=== PATIENT | female | born 1960 | race Caucasian/White ===

== ENCOUNTER 2023-03-11 08:28 | Day surgery (SDC) | payer BC, MEDICARE ==
[~2023-03-11] VITALS: Ht 162.6 cm; Wt 122.5 kg
[2023-03-11 09:06] VITALS: BP 125/51; PULSE 63; RESP 16; TEMP 98.3; O2SAT 93
[2023-03-11] MEDS ORDERED: CELE100C99 PO (09:21)
[2023-03-11] MEDS ORDERED: ALBU18HF2 (09:21)
[2023-03-11] MEDS ORDERED: APIX2.5T PO (09:21)
[2023-03-11] MEDS ORDERED: FLUO40CA (09:21)
[2023-03-11] MEDS ORDERED: METH-603 PO (09:21)
[2023-03-11] MEDS ORDERED: EZET10TA6 PO (09:22)
[2023-03-11] MEDS ORDERED: OXYC15TA PO (09:22)
[2023-03-11] MEDS ORDERED: QUET25TA PO (09:23)
[2023-03-11] MEDS ORDERED: iohexol 300mg/ml 100ml inj. ONE (10:49)
[2023-03-11] MEDS ORDERED: iohexol 300 MG/1 ML 50ml polymer ONE (10:54)
[2023-03-11] MEDS ORDERED: midazolam 1 mg/ML 2ml injection ONE (11:06)
[2023-03-11] MEDS ORDERED: fentaNYL/PF 50MCG/1 ML 2ML syringe ONE (11:06)
[2023-03-11 11:26] VITALS: BP 124/48; PULSE 65; RESP 12; O2SAT 97
== END 2023-03-11 11:45 | disposition home or self-care (01) ==
LOC: SSTAY O 08:28
PROVIDERS: ATTEND Radiology Vascular & Interventional Radiology
DX: T82.49XA Other complication of vascular dialysis catheter, initial encounter (principal); D80.1 Nonfamilial hypogammaglobulinemia; Z79.01 Long term (current) use of anticoagulants; Z79.891 Long term (current) use of opiate analgesic; Z88.8 Allergy status to other drugs, medicaments and biological substances; Y73.2 Prosthetic and other implants, materials and accessory gastroenterology and urology devices associated with adverse incidents; Y92.89 Other specified places as the place of occurrence of the external cause
CPT/HCPCS: 36561; 77001; J7030; Q9967; A4620; A6449; J2250; J3010

== ENCOUNTER 2023-05-03 08:32 | Outpatient (CLI) | payer BC, MEDICARE ==
[2023-05-03] VITALS (9 sets, daily range): BP systolic 96–120; BP diastolic 31–48; PULSE 56–82; RESP 14–28; O2SAT 97–99
[~2023-05-03] VITALS: Ht 162.6 cm; Wt 118.0 kg
[~2023-05-03 08:32] MED LIST: ALBU18HF2; APIX2.5T PO; CELE100C99 PO; EZET10TA6 PO; FLUO40CA; METH-603 PO; OXYC15TA PO; QUET25TA PO
[2023-05-03] MEDS ORDERED: regadenoson 0.4mg/5ml syringe IV ONE (10:05)
[2023-05-03] MEDS ORDERED: nitroGLYCERIN 0.4mg SUBLingual tab SL PRN (10:05)
[2023-05-03] MEDS ORDERED: aminophylline 250mg/10ml inj. IV PRN (10:05)
[2023-05-04] MEDS ORDERED: PANT40TA54 PO (11:11)
[2023-05-04] MEDS ORDERED: PARO20TA6 PO (11:11)
[2023-05-04] MEDS ORDERED: SIMV10TA98 PO (11:11)
[2023-05-04] MEDS ORDERED: ARIP10TA14 PO (11:11)
[2023-05-04] MEDS ORDERED: HYDROCORTISONE PO ×2 (11:11)
[2023-05-04] MEDS ORDERED: SENN-263 PO (11:11)
== END 2023-05-03 23:59 | disposition home or self-care (01) ==
LOC: RAD 08:32
PROVIDERS: ATTEND Internal Medicine Cardiovascular Disease
DX: R94.31 Abnormal electrocardiogram [ECG] [EKG] (principal)
CPT/HCPCS: 78452; 93017; A9500; J2785

== ENCOUNTER 2023-05-06 09:21 | Day surgery (SDC) | payer BC, MEDICARE ==
[2023-05-04 11:48] LABS: BASOPHILS # (AUTO) 0.1 X10'3 (0-0.2); BASOPHILS % (AUTO) 0.6 % (0-1); EOSINOPHILS % (AUTO) 0.4 % (0-6); LYMPHOCYTES # (AUTO) 0.7 X10'3 (1.1-4.8); LYMPHOCYTES % (AUTO) 7.1 % (21-51); MEAN CORPUSCULAR HEMOGLOBIN 27.8 PG (27.0-31.0); MEAN CORPUSCULAR HGB CONC 29.4 g/dL (33.0-36.5); MEAN CORPUSCULAR VOLUME 94.6 FL (78-98); MEAN PLATELET VOLUME 8.5 FL (7.4-10.4); MONOCYTES # (AUTO) 0.6 X10'3 (0-0.9); MONOCYTES % (AUTO) 6.1 % (2-12); NEUTROPHILS # (AUTO) 7.9 X10'3 (1.8-7.7); NEUTROPHILS % (AUTO) 85.8 % (42-75); PRE OP HEMATOCRIT 23.9 % (35.0-45.0); PRE OP PLATELET COUNT 245 X10'3 (140-440); PRE OP WHITE BLOOD COUNT 9.2 10'3 (4.8-10.8); RED BLOOD COUNT 2.53 X10'6 (4.20-5.60); RED CELL DISTRIBUTION WIDTH 22.4 % (11.5-14.5)
[2023-05-04 11:57] LABS: ALBUMIN 2.8 G/DL (3.4-5.0); ALBUMIN/GLOBULIN RATIO 0.9 (1.1-1.5); ALKALINE PHOSPHATASE 57 IU/L (46-116); BLOOD UREA NITROGEN 22 MG/DL (7-18); BUN/CREATININE RATIO 21.6 (10.0-20.0); CALCIUM 8.7 MG/DL (8.5-10.1); CHLORIDE 107 MMOL/L (99-107); CREATININE 1.02 MG/DL (0.40-0.90); PRE OP ALT 23 U/L (30-65); PRE OP ANION GAP 8 (8-16); PRE OP AST 16 U/L (10-37); PRE OP BILIRUB, TOTAL 0.3 MG/DL (0.0-1.0); PRE OP GLUCOSE 85 MG/DL (70-104); PRE OP POTASSIUM 3.4 MMOL/L (3.4-5.1); PRE OP SODIUM 142 MMOL/L (135-145); TOTAL CARBON DIOXIDE 26.7 MMOL/L (24-32); TOTAL PROTEIN 5.8 G/DL (6.4-8.2); eGFR 55 ML/MIN
[2023-05-04 12:13] LABS: ANISOCYTOSIS 3+; NUCLEATED RED BLOOD CELLS 2 /100WBC (0-0); PLATELET ESTIMATE NORMAL; TOTAL CELLS COUNTED 100
[2023-05-04 12:14] LABS: ELLIPTOCYTES FEW; POLYCHROMASIA FEW; TEAR DROP CELLS FEW
[~2023-05-06] VITALS: Ht 162.6 cm; Wt 120.2 kg
[2023-05-06] VITALS (12 sets, daily range): BP systolic 122–140; BP diastolic 57–75; PULSE 54–66; RESP 14–21; TEMP 97.8; O2SAT 99–100
[~2023-05-06 09:21] MED LIST changes: -ALBU18HF2; +ALBU18HF2 PO; +ARIP10TA14 PO; +CELE-148 PO; -CELE100C99 PO; -FLUO40CA; +HYDROCORTISONE PO; +PANT40TA54 PO; +PARO20TA6 PO; +SENN-263 PO; +SIMV10TA98 PO; +albuterol 2.5 MG/3 ML nebule NEB ONE; +cefazolin 2gm/D5W 100mL 100 ML IV ONE; +famotidine 20mg tablet PO ONE; +methylPREDNISolone sod succ 125mg/2ml vial IV ONE; +ringers solution, lacted 1,000 ML IV SCH
[2023-05-06 11:39] LABS: ISTAT CREATININE 0.8 mg/dL (0.6-1.1); ISTAT HGB 9.9 g/dl (12.0-16.0); ISTAT IONIZED CALCIUM 1.24 mmol/L (1.03-1.32); ISTAT K 3.6 mmol/L (3.5-5.1); POC BUN/CREATININE RATIO 21.3 (6.6-38.0)
[2023-05-06 13:06] LABS: BILIRUBIN,URINE NEGATIVE (Neg); CLARITY,URINE CLEAR (Clear); COLOR,URINE YELLOW (Yellow); GLUCOSE, URINE NEGATIVE (Neg); KETONES,URINE NEGATIVE (Neg); LEUKOCYTE ESTERASE ,URINE NEGATIVE (Neg); NITRITES, URINE NEGATIVE (Neg); OCCULT BLOOD,URINE NEGATIVE (Neg); PROTEIN,URINE NEGATIVE (Neg)
[2023-05-06 13:11] LABS: UA COLLECTION TYPE CLN CATCH MIDSTREAM
[2023-05-06] MEDS ORDERED: ringers solution, lacted 1,000 ML IV SCH (14:55)
[2023-05-06] MEDS ORDERED: morphine 4 MG/ML inj SYRINge IV PRN (14:55)
[2023-05-06] MEDS ORDERED: morphine 2 MG/ML inj. syringe IV PRN (14:55)
[2023-05-06] MEDS ORDERED: meperidine/PF 25mg/ml syringe IV PRN ×3 (14:55)
[2023-05-06] MEDS ORDERED: proCHLORperazine 10 MG/2 ml inj IV PRN (14:55)
[2023-05-06] MEDS ORDERED: ondansetron/PF 4mg/2ml inj IV PRN (14:55)
[2023-05-06] MEDS ORDERED: bacitracin 15gm ointment TP ONE (14:59)
[2023-05-06] MEDS ORDERED: BUPIVAcaine 2.5mg/ml inj 50ml vial (contains preservative) ONE (14:59)
[2023-05-06] MEDS ORDERED: fentaNYL/PF 50MCG/1 ML 2ML syringe ONE ×2 (15:00→15:38)
[2023-05-06] MEDS ORDERED: midazolam 1 mg/ML 2ml injection ONE (15:01)
[2023-05-06] MEDS ORDERED: ondansetron/PF 4mg/2ml inj ONE (15:10)
[2023-05-06] MEDS ORDERED: sevoflurane 250ml liquid IH ONE (15:10)
[2023-05-06] MEDS ORDERED: ketamine 50mg/5ml syringe ONE (15:32)
[2023-05-06] MEDS ORDERED: BUPIVAcaine 2.5mg/ml inj 50ml vial (contains preservative) SQ ONE (15:45)
[2023-05-06] MEDS ORDERED: propofol inj 20 ML IV ONE (15:48)
[2023-05-06] MEDS ORDERED: LIDOcaine 2% (20mg/ml) 5ml vial ONE (15:48)
[2023-05-06] MEDS ORDERED: ceFAZolin 1000mg inj ONE (15:48)
[2023-05-06] MEDS ORDERED: glycopyrrolate 0.2mg/ml inj ONE (15:48)
[2023-05-06] MEDS ORDERED: HYDROcodone/acetaminophen 10/325mg tab PO ONE (17:05)
[2023-05-31] MEDS ORDERED: HYDR-4318 PO (11:24)
[2023-06-02] MEDS ORDERED: SIMV-342 PO (11:23)
[2023-06-02] MEDS ORDERED: QUET100T34 PO (11:23)
[2023-06-02] MEDS ORDERED: HYDR20TA24 PO (11:23)
== END 2023-05-06 17:16 | disposition home or self-care (01) ==
LOC: PAS 09:21
PROVIDERS: ATTEND Podiatrist Foot & Ankle Surgery
DX: M19.171 Post-traumatic osteoarthritis, right ankle and foot (principal); M86.8X7 Other osteomyelitis, ankle and foot; J45.909 Unspecified asthma, uncomplicated; I25.10 Atherosclerotic heart disease of native coronary artery without angina pectoris; I50.9 Heart failure, unspecified; D64.9 Anemia, unspecified; F32.A Depression, unspecified; E66.9 Obesity, unspecified; Z68.42 Body mass index [BMI] 45.0-49.9, adult; E27.40 Unspecified adrenocortical insufficiency; Z87.891 Personal history of nicotine dependence; Z86.14 Personal history of Methicillin resistant Staphylococcus aureus infection; Z79.01 Long term (current) use of anticoagulants; Z79.899 Other long term (current) drug therapy; Z88.8 Allergy status to other drugs, medicaments and biological substances; Z72.89 Other problems related to lifestyle; Z98.890 Other specified postprocedural states
CPT/HCPCS: 20220; 20225; 36415; 73600; 77002; 80047; 80053; 81003; 82948; 85025; 87070; 87075; 87077; 87102; 87186; 94640; 94760; A6222; J0690; J2175; J2250; J2405; J2704; J2930; J3010; J3490; J7030; J7120; Z7506; Z7512; 76000; 85007; A4618; A6449; A7000

== ENCOUNTER 2023-06-10 11:16 | Inpatient (IN) | payer BC, MEDICARE ==
[2023-05-31 11:37] LABS: BASOPHILS % (AUTO) 0.4 % (0-1); EOSINOPHILS # (AUTO) 0.1 X10'3 (0-0.9); EOSINOPHILS % (AUTO) 0.9 % (0-6); LYMPHOCYTES # (AUTO) 0.3 X10'3 (1.1-4.8); LYMPHOCYTES % (AUTO) 4.9 % (21-51); MEAN CORPUSCULAR HEMOGLOBIN 27.8 PG (27.0-31.0); MEAN CORPUSCULAR HGB CONC 29.6 g/dL (33.0-36.5); MEAN PLATELET VOLUME 8.8 FL (7.4-10.4); MONOCYTES # (AUTO) 0.3 X10'3 (0-0.9); MONOCYTES % (AUTO) 4.4 % (2-12); NEUTROPHILS # (AUTO) 5.8 X10'3 (1.8-7.7); NEUTROPHILS % (AUTO) 89.4 % (42-75); PRE OP HEMATOCRIT 25.7 % (35.0-45.0); PRE OP PLATELET COUNT 190 X10'3 (140-440); PRE OP WHITE BLOOD COUNT 6.5 10'3 (4.8-10.8); RED BLOOD COUNT 2.73 X10'6 (4.20-5.60); RED CELL DISTRIBUTION WIDTH 20.6 % (11.5-14.5)
[2023-05-31 11:39] LABS: PRE OP HEMOGLOBIN 7.6 g/dL (12.0-16.0)
[2023-05-31 11:49] LABS: ALBUMIN 2.6 G/DL (3.4-5.0); ALBUMIN/GLOBULIN RATIO 0.9 (1.1-1.5); ALKALINE PHOSPHATASE 46 IU/L (46-116); BLOOD UREA NITROGEN 21 MG/DL (7-18); BUN/CREATININE RATIO 27.3 (10.0-20.0); CALCIUM 8.5 MG/DL (8.5-10.1); CHLORIDE 105 MMOL/L (99-107); CREATININE 0.77 MG/DL (0.40-0.90); PRE OP ALT 19 U/L (30-65); PRE OP ANION GAP 7 (8-16); PRE OP AST 17 U/L (10-37); PRE OP BILIRUB, TOTAL 0.3 MG/DL (0.0-1.0); PRE OP GLUCOSE 103 MG/DL (70-104); PRE OP POTASSIUM 4.3 MMOL/L (3.4-5.1); PRE OP SODIUM 138 MMOL/L (135-145); TOTAL CARBON DIOXIDE 26.1 MMOL/L (24-32); TOTAL PROTEIN 5.5 G/DL (6.4-8.2); eGFR 76 ML/MIN
[2023-05-31 13:28] LABS: ANISOCYTOSIS 3+; PLATELET ESTIMATE NORMAL
[2023-05-31 13:29] LABS: HYPOCHROMASIA 1+; POIKILOCYTOSIS FEW; POLYCHROMASIA FEW; TEAR DROP CELLS FEW
[2023-06-10] VITALS (17 sets, daily range): BP systolic 110–160; BP diastolic 42–83; PULSE 49–91; RESP 12–20; TEMP 96.9–97.6; O2SAT 95–100
[~2023-06-10] VITALS: Ht 162.6 cm; Wt 119.6 kg
[~2023-06-10 11:16] MED LIST changes: +DOCUMENT DATE & TIME OF BETA-BLOCKER PO ONE; +HYDR-4318 PO; +HYDR20TA24 PO; -HYDROCORTISONE PO; +QUET100T34 PO; -QUET25TA PO; +SIMV-342 PO; -SIMV10TA98 PO; -albuterol 2.5 MG/3 ML nebule NEB ONE; -methylPREDNISolone sod succ 125mg/2ml vial IV ONE
[2023-06-10 13:12] LABS: ISTAT CREATININE 0.8 mg/dL (0.6-1.1); ISTAT HGB 10.9 g/dl (12.0-16.0); ISTAT IONIZED CALCIUM 1.2 mmol/L (1.03-1.32); POC BUN/CREATININE RATIO 22.5 (6.6-38.0)
[2023-06-10] MEDS ORDERED: hydrocortisone sod succ/PF 250mg/2ml inj. IV ONE (13:40)
[2023-06-10] MEDS ORDERED: HYDROCORTISONE SOD SUCC IV ONE (14:00)
[2023-06-10] MEDS ORDERED: NORMAL SALINE IV ONE (14:00)
[2023-06-10 14:19] LABS: BILIRUBIN,URINE NEGATIVE (Neg); CLARITY,URINE SLIGHTLY CLOUDY (Clear); COLOR,URINE YELLOW (Yellow); GLUCOSE, URINE NEGATIVE (Neg); KETONES,URINE NEGATIVE (Neg); LEUKOCYTE ESTERASE ,URINE NEGATIVE (Neg); NITRITES, URINE NEGATIVE (Neg); OCCULT BLOOD,URINE NEGATIVE (Neg); PH,URINE 6.5 (4.8-8.0); PROTEIN,URINE NEGATIVE (Neg); UROBILINOGEN,URINE 0.2 E.U/dL (0.2-1.0)
[2023-06-10 14:24] LABS: UA COLLECTION TYPE CLN CATCH MIDSTREAM
[2023-06-10 14:32] LABS: MUCUS STRANDS MODERATE /LPF (Neg); SQUAMOUS EPITHELIAL CELL,UR MANY /LPF (FEW)
[2023-06-10 14:33] LABS: BACTERIA,URINE FEW /HPF (Neg); HYALINE CASTS 0-3 /LPF (NEGATIVE); RBC,URINE 0-2 /HPF (0-2); WBC,URINE 0-4 /HPF (0-4)
[2023-06-10] MEDS ORDERED: ondansetron/PF 4mg/2ml inj IV PRN ×2 (14:40→18:35)
[2023-06-10] MEDS ORDERED: enalaprilat dihydrate 2.5mg/2ml vial IV PRN (14:40)
[2023-06-10] MEDS ORDERED: proCHLORperazine 10 MG/2 ml inj IV PRN (14:40)
[2023-06-10] MEDS ORDERED: morphine 2 MG/ML inj. syringe IV PRN (14:40)
[2023-06-10] MEDS ORDERED: labetalol 20mg/4ml (5mg/ml) syringe IV PRN (14:40)
[2023-06-10] MEDS ORDERED: ringers solution, lacted 1,000 ML IV SCH (14:40)
[2023-06-10] MEDS ORDERED: morphine 4 MG/ML inj SYRINge IV PRN (14:40)
[2023-06-10] MEDS ORDERED: meperidine/PF 25mg/ml syringe IV PRN ×2 (14:40)
[2023-06-10] MEDS ORDERED: fentaNYL /PF 50mcg/ml 5ml ampule ONE (15:41)
[2023-06-10] MEDS ORDERED: MIDAZolam 1 MG/ML 5ML VIAL ONE (15:41)
[2023-06-10] MEDS ORDERED: sevoflurane 250ml liquid IH ONE (15:42)
[2023-06-10] MEDS ORDERED: propofol 10mg/ml 20ml vial IV ONE (15:42)
[2023-06-10] MEDS ORDERED: ROPIVAcaine 0.5% (5mg/ml) 30ml vial ONE (15:43)
[2023-06-10] MEDS ORDERED: LIDOcaine 1%/PF 5ML 10 MG/ML VIAL ONE ×2 (15:44→15:48)
[2023-06-10] MEDS ORDERED: BUPIVAcaine/PF 7.5mg/ml (0.75%) 10ml vial ONE (15:45)
[2023-06-10] MEDS ORDERED: rocuronium 10mg/ml inj IV ONE (15:56)
[2023-06-10] MEDS ORDERED: LIDOcaine 2% jelly 6ml syringe ***for topical use only ONE (15:57)
[2023-06-10] MEDS ORDERED: Thrombin (Bovine) 5,000 unit vial TP ONE (17:40)
[2023-06-10] MEDS ORDERED: gelatin sponge, absorbable (Gelfoam 100) sponge TP ONE (17:40)
[2023-06-10] MEDS ORDERED: vancomycin 1,000mg inj ONE (17:41)
[2023-06-10] MEDS ORDERED: naloxone 0.4 mg/ml inj IV PRN (18:35)
[2023-06-10] MEDS ORDERED: HYDROcodone/acetaminophen 10/325mg tab PO PRN (18:35)
[2023-06-10] MEDS ORDERED: magnesium hydroxide 30ml (MOM) UD suspension PO PRN (18:35)
[2023-06-10] MEDS ORDERED: acetaminophen 325mg tablet PO PRN (18:35)
[2023-06-10] MEDS ORDERED: acetaminophen 1,000mg/100ml IV 100 ML IV ONE (18:50)
[2023-06-10] MEDS: meperidine/PF 25mg/ml syringe IV PRN ×3 (18:54→19:20)
[2023-06-10] MEDS: HYDROcodone/acetaminophen 10/325mg tab PO PRN (19:24)
[2023-06-10] MEDS: docusate sod 100mg capsule PO SCH (20:00)
[2023-06-10] MEDS: diphenhydrAMINE 25mg capsule PO PRN (23:14)
[2023-06-11] VITALS (8 sets, daily range): BP systolic 91–121; BP diastolic 35–53; PULSE 51–63; RESP 16–17; TEMP 97–98.1; O2SAT 96–100
[2023-06-11] MEDS: potassium CL 20mEq in D5-1/2NS 1,000 ML IV SCH ×3 (00:40→14:57)
[2023-06-11] MEDS: ceFAZolin inj. 1,000 MG in dextrose 5%-water 50ml 50 ML IV SCH ×2 (00:40→07:48)
[2023-06-11] MEDS: HYDROcodone/acetaminophen 10/325mg tab PO PRN ×4 (01:17→20:22)
[2023-06-11] MEDS: docusate sod 100mg capsule PO SCH ×2 (07:48→20:21)
[2023-06-11 09:52] LABS: ANION GAP 6 (8-16); CHLORIDE 106 MMOL/L (99-107); SODIUM 140 MMOL/L (135-145); TOTAL CARBON DIOXIDE 27.9 MMOL/L (24-32)
[2023-06-11 09:54] LABS: BASOPHILS % (AUTO) 0.1 % (0-1); EOSINOPHILS % (AUTO) 0 % (0-6); HEMATOCRIT 27.8 % (35.0-45.0); HEMOGLOBIN 8.9 g/dl (12.0-16.0); LYMPHOCYTES # (AUTO) 0.5 X10'3 (1.1-4.8); LYMPHOCYTES % (AUTO) 5.3 % (21-51); MEAN CORPUSCULAR HEMOGLOBIN 29.7 PG (27.0-31.0); MEAN CORPUSCULAR HGB CONC 31.9 g/dL (33.0-36.5); MEAN CORPUSCULAR VOLUME 93.1 FL (78-98); MEAN PLATELET VOLUME 8.8 FL (7.4-10.4); MONOCYTES # (AUTO) 0.4 X10'3 (0-0.9); MONOCYTES % (AUTO) 3.6 % (2-12); NEUTROPHILS # (AUTO) 8.9 X10'3 (1.8-7.7); PLATELET COUNT 181 X10'3 (140-440); RED BLOOD COUNT 2.98 X10'6 (4.20-5.60); RED CELL DISTRIBUTION WIDTH 20.2 % (11.5-14.5); WHITE BLOOD COUNT 9.8 X10'3 (4.5-11.0)
[2023-06-11] MEDS: vancomycin/NS 1 GM ADD-VANTAGE 250 ML IV SCH ×2 (11:55→19:15)
[2023-06-11] MEDS ORDERED: celeCOXIB 100mg capsule PO SCH (12:35)
[2023-06-11] MEDS ORDERED: sennosides 8.6mg tablet PO PRN (12:35)
[2023-06-11] MEDS: ARIPIPRAZOLE 10 MG TABLET PO SCH (13:10)
[2023-06-11] MEDS ORDERED: albuterol 2.5 MG/3 ML nebule NEB PRN (14:00)
[2023-06-11] MEDS: PARoxetine 20mg tablet PO SCH (14:32)
[2023-06-11] MEDS ORDERED: apixaban 2.5mg tablet PO SCH (20:00)
[2023-06-11] MEDS: nystatin 15 GM powder TP SCH (20:19)
[2023-06-11] MEDS: apixaban 2.5mg tablet PO SCH (20:21)
[2023-06-11] MEDS: atorvastatin 10mg tablet PO SCH (20:21)
[2023-06-11] MEDS: quetiapine 100mg tablet PO SCH (20:22)
[2023-06-11] MEDS: ezetimibe 10mg tablet PO SCH (20:22)
[2023-06-11] MEDS: hydrocortisone 10mg tablet PO SCH (20:23)
[2023-06-11] MEDS: diphenhydrAMINE 25mg capsule PO PRN (22:16)
[2023-06-12] MEDS: vancomycin/NS 1 GM ADD-VANTAGE 250 ML IV SCH (02:38)
[2023-06-12] MEDS: HYDROcodone/acetaminophen 10/325mg tab PO PRN ×4 (02:39→22:32)
[2023-06-12] MEDS: potassium CL 20mEq in D5-1/2NS 1,000 ML IV SCH ×2 (02:39→10:35)
[2023-06-12 06:00] VITALS: BP 117/33; PULSE 53; RESP 16; TEMP 97.5; O2SAT 98
[2023-06-12 10:00] VITALS: BP 106/37; PULSE 66; RESP 16; TEMP 97.8; O2SAT 97
[2023-06-12] MEDS: docusate sod 100mg capsule PO SCH ×2 (10:21→20:31)
[2023-06-12] MEDS: apixaban 2.5mg tablet PO SCH ×2 (10:21→20:31)
[2023-06-12] MEDS: PARoxetine 20mg tablet PO SCH (10:21)
[2023-06-12] MEDS: hydrocortisone 10mg tablet PO SCH ×2 (10:21→20:31)
[2023-06-12] MEDS: ARIPIPRAZOLE 10 MG TABLET PO SCH (10:21)
[2023-06-12] MEDS: nystatin 15 GM powder TP SCH ×3 (10:27→21:00)
[2023-06-12] MEDS ORDERED: VANCOMYCIN LEVEL IV ONE (10:30)
[2023-06-12 10:38] LABS: BASOPHILS % (AUTO) 0.2 % (0-1); EOSINOPHILS % (AUTO) 0.3 % (0-6); HEMATOCRIT 27.7 % (35.0-45.0); HEMOGLOBIN 8.6 g/dl (12.0-16.0); LYMPHOCYTES # (AUTO) 0.8 X10'3 (1.1-4.8); LYMPHOCYTES % (AUTO) 9.7 % (21-51); MEAN CORPUSCULAR HEMOGLOBIN 29.6 PG (27.0-31.0); MEAN CORPUSCULAR HGB CONC 30.9 g/dL (33.0-36.5); MEAN CORPUSCULAR VOLUME 95.7 FL (78-98); MEAN PLATELET VOLUME 8.7 FL (7.4-10.4); MONOCYTES # (AUTO) 0.7 X10'3 (0-0.9); MONOCYTES % (AUTO) 8.1 % (2-12); NEUTROPHILS # (AUTO) 6.9 X10'3 (1.8-7.7); NEUTROPHILS % (AUTO) 81.7 % (42-75); PLATELET COUNT 181 X10'3 (140-440); RED BLOOD COUNT 2.89 X10'6 (4.20-5.60); RED CELL DISTRIBUTION WIDTH 20.6 % (11.5-14.5); WHITE BLOOD COUNT 8.5 X10'3 (4.5-11.0)
[2023-06-12 11:02] LABS: ALANINE AMINOTRANSFERASE 24 U/L (12-78); ALBUMIN 2.4 G/DL (3.4-5.0); ALKALINE PHOSPHATASE 51 IU/L (46-116); ANION GAP 4 (8-16); ASPARTATE AMINO TRANSFERASE 14 U/L (10-37); BILIRUBIN,TOTAL 0.3 MG/DL (0.1-1.0); BLOOD UREA NITROGEN 20 MG/DL (7-18); CHLORIDE 110 MMOL/L (99-107); GLUCOSE 112 MG/DL (70-104); PHOSPHORUS 3.6 MG/DL (2.3-4.5); POTASSIUM 3.7 MMOL/L (3.5-5.1); SODIUM 142 MMOL/L (135-145); TOTAL PROTEIN 4.9 G/DL (6.4-8.2); eCRCL 50 ML/MIN; eGFR 56 ML/MIN
[2023-06-12 11:06] LABS: VANCOMYCIN,TROUGH 25.3 ug/mL (10.0-20.0)
[2023-06-12] MEDS: VANCOMYCIN 750MG IV in NS 250 ML IV SCH ×2 (13:53→20:31)
[2023-06-12 18:00] VITALS: BP 94/44; PULSE 60; RESP 15; TEMP 96.9; O2SAT 98
[2023-06-12 20:00] VITALS: RESP 15; O2SAT 100
[2023-06-12] MEDS: quetiapine 100mg tablet PO SCH (20:31)
[2023-06-12] MEDS: ezetimibe 10mg tablet PO SCH (20:31)
[2023-06-12] MEDS: atorvastatin 10mg tablet PO SCH (20:31)
[2023-06-12 22:00] VITALS: BP 107/39; PULSE 62; RESP 15; TEMP 97.2; O2SAT 100
[2023-06-13] MEDS: HYDROcodone/acetaminophen 10/325mg tab PO PRN ×3 (04:20→18:00)
[2023-06-13] MEDS: VANCOMYCIN 750MG IV in NS 250 ML IV SCH ×3 (04:20→21:35)
[2023-06-13 06:00] VITALS: BP 109/43; PULSE 59; RESP 14; TEMP 97.6; O2SAT 100
[2023-06-13] MEDS: nystatin 15 GM powder TP SCH ×3 (08:00→21:00)
[2023-06-13 10:00] VITALS: BP 117/42; PULSE 67; RESP 16; TEMP 97.5; O2SAT 98
[2023-06-13] MEDS: PARoxetine 20mg tablet PO SCH (11:10)
[2023-06-13] MEDS: docusate sod 100mg capsule PO SCH ×2 (11:11→21:36)
[2023-06-13] MEDS: hydrocortisone 10mg tablet PO SCH ×2 (11:11→21:36)
[2023-06-13] MEDS: apixaban 2.5mg tablet PO SCH ×2 (11:11→21:36)
[2023-06-13] MEDS: ARIPIPRAZOLE 10 MG TABLET PO SCH (11:11)
[2023-06-13] MEDS ORDERED: VANCOMYCIN LEVEL IV ONE ×2 (11:30→19:30)
[2023-06-13 12:11] LABS: HEMOGLOBIN 7.2 g/dl (12.0-16.0); RED CELL DISTRIBUTION WIDTH 20.5 % (11.5-14.5)
[2023-06-13 12:13] LABS: BASOPHILS % (AUTO) 0.4 % (0-1); EOSINOPHILS # (AUTO) 0.1 X10'3 (0-0.9); EOSINOPHILS % (AUTO) 1.3 % (0-6); HEMATOCRIT 22.9 % (35.0-45.0); LYMPHOCYTES # (AUTO) 0.8 X10'3 (1.1-4.8); LYMPHOCYTES % (AUTO) 8.4 % (21-51); MEAN CORPUSCULAR HEMOGLOBIN 29.9 PG (27.0-31.0); MEAN CORPUSCULAR HGB CONC 31.5 g/dL (33.0-36.5); MEAN CORPUSCULAR VOLUME 94.9 FL (78-98); MEAN PLATELET VOLUME 8.3 FL (7.4-10.4); MONOCYTES # (AUTO) 0.7 X10'3 (0-0.9); MONOCYTES % (AUTO) 7.3 % (2-12); NEUTROPHILS # (AUTO) 7.5 X10'3 (1.8-7.7); NEUTROPHILS % (AUTO) 82.6 % (42-75); PLATELET COUNT 162 X10'3 (140-440); RED BLOOD COUNT 2.41 X10'6 (4.20-5.60); WHITE BLOOD COUNT 9.1 X10'3 (4.5-11.0)
[2023-06-13 12:27] LABS: ALANINE AMINOTRANSFERASE 21 U/L (12-78); ALBUMIN 1.9 G/DL (3.4-5.0); ALBUMIN/GLOBULIN RATIO 0.8 (1.1-1.5); ALKALINE PHOSPHATASE 43 IU/L (46-116); ANION GAP 6 (8-16); ASPARTATE AMINO TRANSFERASE 14 U/L (10-37); BILIRUBIN,TOTAL 0.2 MG/DL (0.1-1.0); BLOOD UREA NITROGEN 26 MG/DL (7-18); BUN/CREATININE RATIO 29.9 (10.0-20.0); CHLORIDE 109 MMOL/L (99-107); CREATININE 0.87 MG/DL (0.40-0.90); GLUCOSE 76 MG/DL (70-104); MAGNESIUM 1.8 MG/DL (1.5-2.4); PHOSPHORUS 3.7 MG/DL (2.3-4.5); POTASSIUM 3.8 MMOL/L (3.5-5.1); SODIUM 142 MMOL/L (135-145); TOTAL PROTEIN 4.2 G/DL (6.4-8.2); VANCOMYCIN,TROUGH 23.7 ug/mL (10.0-20.0); eCRCL 58 ML/MIN; eGFR 66 ML/MIN
[2023-06-13 14:29] LABS: PLATELET ESTIMATE NORMAL; POLYCHROMASIA 1+
[2023-06-13 14:30] LABS: ANISOCYTOSIS 3+
[2023-06-13 19:00] VITALS: BP 107/35; PULSE 65; RESP 15; RESP 16; TEMP 97.3; O2SAT 99
[2023-06-13] MEDS: atorvastatin 10mg tablet PO SCH (21:36)
[2023-06-13] MEDS: ezetimibe 10mg tablet PO SCH (21:36)
[2023-06-13] MEDS: quetiapine 100mg tablet PO SCH (21:36)
[2023-06-13 22:00] VITALS: BP 97/45; PULSE 72; RESP 15; TEMP 98.4; O2SAT 99
[2023-06-13] MEDS: diphenhydrAMINE 25mg capsule PO PRN (22:11)
[2023-06-14] VITALS (12 sets, daily range): BP systolic 108–135; BP diastolic 42–60; PULSE 67–81; RESP 15–18; TEMP 97.7–99.4; O2SAT 98–100
[2023-06-14] MEDS: HYDROcodone/acetaminophen 10/325mg tab PO PRN ×3 (00:22→12:06)
[2023-06-14] MEDS: VANCOMYCIN 750MG IV in NS 250 ML IV SCH ×3 (03:59→20:40)
[2023-06-14 07:43] LABS: BASOPHILS % (AUTO) 0.3 % (0-1); EOSINOPHILS # (AUTO) 0.1 X10'3 (0-0.9); EOSINOPHILS % (AUTO) 1.7 % (0-6); LYMPHOCYTES # (AUTO) 0.5 X10'3 (1.1-4.8); LYMPHOCYTES % (AUTO) 6.7 % (21-51); MEAN CORPUSCULAR HEMOGLOBIN 30.6 PG (27.0-31.0); MEAN CORPUSCULAR HGB CONC 31.2 g/dL (33.0-36.5); MEAN CORPUSCULAR VOLUME 97.8 FL (78-98); MEAN PLATELET VOLUME 8.8 FL (7.4-10.4); MONOCYTES # (AUTO) 0.5 X10'3 (0-0.9); MONOCYTES % (AUTO) 5.9 % (2-12); NEUTROPHILS # (AUTO) 6.8 X10'3 (1.8-7.7); NEUTROPHILS % (AUTO) 85.4 % (42-75); PLATELET COUNT 143 X10'3 (140-440); RED BLOOD COUNT 2.07 X10'6 (4.20-5.60); RED CELL DISTRIBUTION WIDTH 20.9 % (11.5-14.5)
[2023-06-14 07:47] LABS: HEMOGLOBIN 6.3 g/dl (12.0-16.0)
[2023-06-14 07:48] LABS: HEMATOCRIT 20.3 % (35.0-45.0)
[2023-06-14 07:53] LABS: ANION GAP 5 (8-16); BILIRUBIN,TOTAL 0.2 MG/DL (0.1-1.0); BLOOD UREA NITROGEN 29 MG/DL (7-18); BUN/CREATININE RATIO 35.8 (10.0-20.0); CALCIUM 7.5 MG/DL (8.5-10.1); CHLORIDE 110 MMOL/L (99-107); CREATININE 0.81 MG/DL (0.40-0.90); GLUCOSE 90 MG/DL (70-104); MAGNESIUM 1.9 MG/DL (1.5-2.4); POTASSIUM 3.9 MMOL/L (3.5-5.1); SODIUM 141 MMOL/L (135-145); TOTAL CARBON DIOXIDE 25.9 MMOL/L (24-32); eCRCL 62 ML/MIN; eGFR 72 ML/MIN
[2023-06-14 07:54] LABS: ALANINE AMINOTRANSFERASE 21 U/L (12-78); ALBUMIN 1.9 G/DL (3.4-5.0); ALBUMIN/GLOBULIN RATIO 0.9 (1.1-1.5); ALKALINE PHOSPHATASE 37 IU/L (46-116); ASPARTATE AMINO TRANSFERASE 9 U/L (10-37)
[2023-06-14] MEDS: nystatin 15 GM powder TP SCH ×3 (08:00→21:01)
[2023-06-14] MEDS: ARIPIPRAZOLE 10 MG TABLET PO SCH (08:21)
[2023-06-14] MEDS: apixaban 2.5mg tablet PO SCH ×2 (08:21→20:42)
[2023-06-14] MEDS: hydrocortisone 10mg tablet PO SCH ×2 (08:21→20:41)
[2023-06-14] MEDS: PARoxetine 20mg tablet PO SCH (08:22)
[2023-06-14] MEDS: docusate sod 100mg capsule PO SCH ×2 (08:22→20:42)
[2023-06-14] MEDS: CefTRIAXone/D5W-Rocephin 1gm 50 ML IV SCH (08:23)
[2023-06-14 08:38] LABS: ANISOCYTOSIS 3+; NUCLEATED RED BLOOD CELLS 3 /100WBC (0-0); PLATELET ESTIMATE NORMAL; TOTAL CELLS COUNTED 100
[2023-06-14 08:39] LABS: BURR CELLS FEW; ELLIPTOCYTES FEW; POLYCHROMASIA FEW; SCHISTOCYTES FEW; TEAR DROP CELLS FEW
[2023-06-14] MEDS ORDERED: non-formulary drug (Oxycodone Hcl 1 TAB) PO PRN (10:55)
[2023-06-14] MEDS: methadone 10mg tablet PO SCH (20:41)
[2023-06-14] MEDS: atorvastatin 10mg tablet PO SCH (20:41)
[2023-06-14] MEDS: quetiapine 100mg tablet PO SCH (20:41)
[2023-06-14] MEDS: ezetimibe 10mg tablet PO SCH (20:41)
[2023-06-15] MEDS: HYDROcodone/acetaminophen 10/325mg tab PO PRN (01:27)
[2023-06-15 03:17] VITALS: RESP 18; O2SAT 95
[2023-06-15] MEDS: VANCOMYCIN 750MG IV in NS 250 ML IV SCH ×2 (04:42→12:22)
[2023-06-15 06:20] LABS: BASOPHILS % (AUTO) 0.6 % (0-1); EOSINOPHILS # (AUTO) 0.1 X10'3 (0-0.9); EOSINOPHILS % (AUTO) 1.9 % (0-6); HEMATOCRIT 26.6 % (35.0-45.0); HEMOGLOBIN 8.6 g/dl (12.0-16.0); LYMPHOCYTES # (AUTO) 0.4 X10'3 (1.1-4.8); MEAN CORPUSCULAR HEMOGLOBIN 30.6 PG (27.0-31.0); MEAN CORPUSCULAR HGB CONC 32.4 g/dL (33.0-36.5); MEAN CORPUSCULAR VOLUME 94.5 FL (78-98); MEAN PLATELET VOLUME 8.2 FL (7.4-10.4); MONOCYTES # (AUTO) 0.5 X10'3 (0-0.9); MONOCYTES % (AUTO) 6.2 % (2-12); NEUTROPHILS # (AUTO) 6.4 X10'3 (1.8-7.7); NEUTROPHILS % (AUTO) 85.3 % (42-75); PLATELET COUNT 144 X10'3 (140-440); RED BLOOD COUNT 2.82 X10'6 (4.20-5.60); RED CELL DISTRIBUTION WIDTH 19.7 % (11.5-14.5); WHITE BLOOD COUNT 7.5 X10'3 (4.5-11.0)
[2023-06-15 06:53] LABS: ALANINE AMINOTRANSFERASE 23 U/L (12-78); ALBUMIN/GLOBULIN RATIO 0.8 (1.1-1.5); ALKALINE PHOSPHATASE 41 IU/L (46-116); ANION GAP 4 (8-16); ASPARTATE AMINO TRANSFERASE 17 U/L (10-37); BILIRUBIN,TOTAL 0.5 MG/DL (0.1-1.0); BLOOD UREA NITROGEN 21 MG/DL (7-18); BUN/CREATININE RATIO 25.3 (10.0-20.0); CALCIUM 7.7 MG/DL (8.5-10.1); CHLORIDE 110 MMOL/L (99-107); CREATININE 0.83 MG/DL (0.40-0.90); GLUCOSE 97 MG/DL (70-104); MAGNESIUM 2.1 MG/DL (1.5-2.4); PHOSPHORUS 3.9 MG/DL (2.3-4.5); POTASSIUM 3.9 MMOL/L (3.5-5.1); SODIUM 140 MMOL/L (135-145); TOTAL CARBON DIOXIDE 25.6 MMOL/L (24-32); TOTAL PROTEIN 4.4 G/DL (6.4-8.2); eCRCL 61 ML/MIN; eGFR 70 ML/MIN
[2023-06-15] MEDS: ARIPIPRAZOLE 10 MG TABLET PO SCH (08:59)
[2023-06-15] MEDS: apixaban 2.5mg tablet PO SCH (09:00)
[2023-06-15] MEDS: docusate sod 100mg capsule PO SCH (09:00)
[2023-06-15] MEDS: methadone 10mg tablet PO SCH (09:00)
[2023-06-15] MEDS: hydrocortisone 10mg tablet PO SCH (09:00)
[2023-06-15] MEDS: PARoxetine 20mg tablet PO SCH (09:01)
[2023-06-15] MEDS: CefTRIAXone/D5W-Rocephin 1gm 50 ML IV SCH (09:02)
[2023-06-15] MEDS: nystatin 15 GM powder TP SCH ×2 (09:02→13:00)
[2023-06-15 09:28] VITALS: RESP 18; O2SAT 96
[2023-06-15 10:01] VITALS: RESP 17
== END 2023-06-15 17:30 | DRG 478 ==
LOC: PAS 11:16 → ORTHO 4S 18:46 → OBSVTOIN 06-13 09:00
PROVIDERS: ADMIT Podiatrist Foot & Ankle Surgery; ATTEND Podiatrist Foot & Ankle Surgery
PROC: 0QBG0ZX Excision of Right Tibia, Open Approach, Diagnostic (ICD-10-PCS; 2023-06-10)
PROC: 0LQV0ZZ Repair Right Foot Tendon, Open Approach (ICD-10-PCS; 2023-06-10)
PROC: 0QPL04Z Removal of Internal Fixation Device from Right Tarsal, Open Approach (ICD-10-PCS; principal; 2023-06-10 15:42)
PROC: 30233N1 Transfusion of Nonautologous Red Blood Cells into Peripheral Vein, Percutaneous Approach (ICD-10-PCS; 2023-06-14)
DX: T84.84XA Pain due to internal orthopedic prosthetic devices, implants and grafts, initial encounter (principal); D84.9 Immunodeficiency, unspecified; E23.0 Hypopituitarism; M86.8X6 Other osteomyelitis, lower leg; Z68.42 Body mass index [BMI] 45.0-49.9, adult; F32.A Depression, unspecified; Y83.8 Other surgical procedures as the cause of abnormal reaction of the patient, or of later complication, without mention of misadventure at the time of the procedure; E66.9 Obesity, unspecified; G89.29 Other chronic pain; M32.9 Systemic lupus erythematosus, unspecified; D64.9 Anemia, unspecified; Z79.899 Other long term (current) drug therapy; Y92.89 Other specified places as the place of occurrence of the external cause
CPT/HCPCS: 36569; Z7506; Z7508; 36415; 36430; 73600; 76000; 76942; 80047; 80051; 80053; 80202; 81001; 82948; 83735; 84100; 85007; 85008; 85025; 86870; 86885; 86900; 86901; 86902; 86905; 86922; 87070; 87075; 97161; 97530; A4618; A6449; A7000; C1751; G0378; J0131; J0690; J0696; J1720; J2175; J2250; J2704; J2795; J3010; J3370; J3480; J3490; J7040; J7050; J7060; J7120; P9016; Q0163

== ENCOUNTER 2023-08-08 15:52 | Outpatient (CLI) | payer BC, MEDICARE ==
[~2023-08-08 15:52] MED LIST changes: -DOCUMENT DATE & TIME OF BETA-BLOCKER PO ONE; -HYDR20TA24 PO; -PANT40TA54 PO; -cefazolin 2gm/D5W 100mL 100 ML IV ONE; -famotidine 20mg tablet PO ONE; -ringers solution, lacted 1,000 ML IV SCH
== END 2023-08-08 23:59 | disposition home or self-care (01) ==
LOC: RAD 15:52
PROVIDERS: ATTEND Podiatrist Foot & Ankle Surgery
DX: M19.071 Primary osteoarthritis, right ankle and foot (principal); M21.961 Unspecified acquired deformity of right lower leg; M25.471 Effusion, right ankle; M21.41 Flat foot [pes planus] (acquired), right foot; M32.9 Systemic lupus erythematosus, unspecified; M86.9 Osteomyelitis, unspecified; M79.671 Pain in right foot
CPT/HCPCS: 73700

== ENCOUNTER 2023-09-06 16:19 | Outpatient (CLI) | payer BC, MEDICARE | END 2023-09-06 23:59 | disposition home or self-care (01) | LOC: RAD 16:19 | PROVIDERS: ATTEND Podiatrist Foot & Ankle Surgery | DX: M19.071 Primary osteoarthritis, right ankle and foot (principal); M25.471 Effusion, right ankle; M21.41 Flat foot [pes planus] (acquired), right foot; M32.9 Systemic lupus erythematosus, unspecified; M86.9 Osteomyelitis, unspecified; M79.671 Pain in right foot; Z98.890 Other specified postprocedural states | CPT/HCPCS: 73700 ==